=== PATIENT | male | born 1975 | race Caucasian/White ===

== ENCOUNTER 2024-09-22 14:11 | Emergency (ER) | payer OTHER, SELFPAY ==
[~2024-09-22 14:11] MED LIST: Iopamidol-370 76% 500 ML MDV (1 ML CHARGE) ONE
[2024-09-22 14:57] LABS: #Basophils 0.03 10x3/uL (0.0-0.2); %Basophils 0.5 % (0.0-1.0); %Eosinophils 4.4 % (0.0-10.0); %Lymphocytes 35.2 % (21.0-51.0); %Monocytes 7.8 % (0.0-10.0); %Neutrophils 51.9 % (42.0-75.0); Hematocrit 43.6 % (42.0-52.0); Hemoglobin 14.9 g/dL (14.0-18.0); Mean Corpuscular HGB CONC 34.2 g/dL (32.0-36.0); Mean Corpuscular Hemoglobin 31.1 pg (27.0-31.0); Mean Platelet Volume 9.3 fL (7.4-10.4); Platelet Count 292 10x3/uL (130-400); RBC Distribution Width 12.7 % (11.5-14.5); Red Blood Cell (RBC) Count 4.79 mill/uL (4.70-6.10)
[2024-09-22 15:26] LABS: Troponin I Less than 0.010 ng/mL (< 0.028)
[2024-09-22 15:28] LABS: Anion Gap 14 mmol/L (10-20); BUN (Urea Nitrogen) 9 mg/dL (8.9-20.6); Calc. Creatinine Clearance 0 mL/min (70-130); Carbon Dioxide 23 mmol/L (22-29); Chloride 106 mmol/L (98-107); Estimated GFR 109; Glucose 95 mg/dL (70-105); Sodium 139 mmol/L (136-145)
[2024-09-22] MEDS ORDERED: Morphine 4 MG/ML VIAL ONE (16:04)
[2024-09-22] MEDS ORDERED: Acetaminophen 500 MG TAB ONE (16:04)
[2024-09-22] MEDS ORDERED: Ketorolac Tromethamine 30 MG (1 mL) VIAL ONE (16:05)
== END 2024-09-22 20:00 | disposition home or self-care (01) ==
LOC: ERS 14:11
DX: S29.011A Strain of muscle and tendon of front wall of thorax, initial encounter (principal); Z55.6 Problems related to health literacy; F17.210 Nicotine dependence, cigarettes, uncomplicated; X50.0XXA Overexertion from strenuous movement or load, initial encounter; Y99.0 Civilian activity done for income or pay
CPT/HCPCS: 36415; 71045; 71275; 80048; 83880; 84484; 85025; 93005; 96374; 96375; J1885; J2272; Q9967

== ENCOUNTER 2024-10-10 07:07 | Emergency (ER) | payer OTHER ==
[2024-10-10] MEDS ORDERED: Ketorolac Tromethamine 30 MG (1 mL) VIAL ONE (07:32)
[2024-10-10 07:54] LABS: #Basophils Less than 0.03 10x3/uL (0.0-0.2); %Basophils 0.3 % (0.0-1.0); %Eosinophils 2.9 % (0.0-10.0); %Lymphocytes 22.1 % (21.0-51.0); %Neutrophils 65.6 % (42.0-75.0); Mean Corpuscular HGB CONC 35.6 g/dL (32.0-36.0); Mean Corpuscular Hemoglobin 30.9 pg (27.0-31.0); Mean Platelet Volume 9.3 fL (7.4-10.4); Platelet Count 284 10x3/uL (130-400); RBC Distribution Width 12.6 % (11.5-14.5); Red Blood Cell (RBC) Count 5.17 mill/uL (4.70-6.10)
[2024-10-10] MEDS ORDERED: predniSONE 20 MG TAB ONE (08:01)
[2024-10-10 08:07] LABS: ALT (SGPT) 15 U/L (8-55); AST (SGOT) 21 U/L (5-34); Albumin 4.3 g/dL (3.5-5.0); Alkaline Phosphatase 48 U/L (40-110); Anion Gap 14 mmol/L (10-20); BUN (Urea Nitrogen) 14 mg/dL (8.9-20.6); Bilirubin, Total 0.8 mg/dL (0.2-1.2); Calc. Creatinine Clearance 0 mL/min (70-130); Calcium 9.3 mg/dL (7.8-10.44); Carbon Dioxide 21 mmol/L (22-29); Chloride 105 mmol/L (98-107); Estimated GFR 112; Globulin 3.2 g/dL (2.4-3.5); Glucose 96 mg/dL (70-105); Lipase 11 U/L (8-78); Potassium 3.9 mmol/L (3.5-5.1); Protein, Total 7.5 g/dL (6.0-8.3); Sodium 136 mmol/L (136-145)
[2024-10-10 08:10] LABS: Troponin I Less than 0.010 ng/mL (< 0.028)
[2024-10-10] MEDS ORDERED: Ipratropium Bromide 2.5 ml Neb ONE (08:16)
== END 2024-10-10 09:28 | disposition home or self-care (01) ==
LOC: ERS 07:07
DX: R07.9 Chest pain, unspecified (principal); R09.89 Other specified symptoms and signs involving the circulatory and respiratory systems; Z72.0 Tobacco use
CPT/HCPCS: 71045; 80053; 83690; 84484; 85025; 85379; 93005; 94640; 96374; J1885; J7512; J7644

== ENCOUNTER 2025-01-02 10:25 | Emergency (ER) | payer OTHER ==
[2025-01-02] MEDS ORDERED: Morphine 4 MG/ML VIAL ONE (12:44)
[2025-01-02] MEDS ORDERED: Aspirin Chewable 81 MG TAB ONE (12:44)
[2025-01-02 13:26] LABS: #Basophils 0.04 10x3/uL (0.0-0.2); %Basophils 0.7 % (0.0-1.0); %Eosinophils 2.7 % (0.0-10.0); %Lymphocytes 32.6 % (21.0-51.0); %Monocytes 10.5 % (0.0-10.0); %Neutrophils 53.3 % (42.0-75.0); Hematocrit 45.3 % (42.0-52.0); Hemoglobin 15.7 g/dL (14.0-18.0); Mean Corpuscular HGB CONC 34.7 g/dL (32.0-36.0); Mean Corpuscular Volume 89.3 fL (78.0-98.0); Mean Platelet Volume 8.9 fL (7.4-10.4); Platelet Count 299 10x3/uL (130-400); RBC Distribution Width 12.3 % (11.5-14.5); Red Blood Cell (RBC) Count 5.07 mill/uL (4.70-6.10)
[2025-01-02 13:47] LABS: ALT (SGPT) 9 U/L (Less than 45); AST (SGOT) 19 U/L (11-34); Albumin 4.3 g/dL (3.1-4.5); Alkaline Phosphatase 44 U/L (40-110); Anion Gap 14 mmol/L (10-20); BUN (Urea Nitrogen) 11 mg/dL (8.9-20.6); Bilirubin, Total 0.6 mg/dL (0.3-1.2); Calc. Creatinine Clearance 0 mL/min (70-130); Calcium 9.7 mg/dL (7.8-10.44); Carbon Dioxide 25 mmol/L (22-29); Chloride 105 mmol/L (98-107); Estimated GFR 107; Globulin 3.4 g/dL (2.4-3.5); Glucose 83 mg/dL (70-105); Potassium 4.7 mmol/L (3.5-5.1); Protein, Total 7.7 g/dL (6.0-8.3); Sodium 139 mmol/L (136-145); Troponin I Less than 0.010 ng/mL (< 0.028)
== END 2025-01-02 14:11 | disposition home or self-care (01) ==
LOC: ERS 10:25
DX: R07.9 Chest pain, unspecified (principal); R06.02 Shortness of breath; Z87.891 Personal history of nicotine dependence
CPT/HCPCS: 36415; 71045; 80053; 84484; 85025; 93005; 96374; J2270